=== PATIENT | female | born 1960 | race Caucasian/White ===

== ENCOUNTER 2018-01-09 13:39 | Emergency (ER) | payer MEDICAID ==
[~2018-01-09] VITALS: Ht 154.9 cm; Wt 60.8 kg
[2018-01-09] MEDS ORDERED: CYCL10 PO (13:51)
[2018-01-09] MEDS ORDERED: VENL37.5ER PO (13:52)
[2018-01-09 15:03] LABS: BASOPHILS ABSOLUTE AUTO 0.03 K/mm3 (0.00-0.23); BASOPHILS PERCENT AUTO 0 % (0-2); EOSINOPHILS ABSOLUTE AUTO 0.01 K/mm3 (0.00-0.68); EOSINOPHILS PERCENT AUTO 0 % (0-6); Hematocrit 40.1 % (33.0-51.0); Hemoglobin 13.5 g/dL (11.5-16.0); IMMATURE GRAN ABSOLUTE AUTO 0.05 K/mm3 (0.00-0.10); IMMATURE GRAN PERCENT AUTO 0 % (0-1); LYMPHOCYTES ABSOLUTE AUTO 1.38 K/mm3 (0.84-5.20); LYMPHOCYTES PERCENT AUTO 12 % (21-46); MONOCYTES ABSOLUTE AUTO 0.66 K/mm3 (0.16-1.47); MONOCYTES PERCENT AUTO 6 % (4-13); Mean Corpuscular HGB 28.8 pg (26.0-34.0); Mean Corpuscular HGB Conc 33.7 g/dL (31.5-36.5); Mean Corpuscular Volume 86 fL (80-100); Mean Platelet Volume 9.2 fL (9.1-12.4); NEUTROPHILS ABSOLUTE AUTO 9.77 K/mm3 (1.96-9.15); NEUTROPHILS PERCENT AUTO 82 % (41-73); Platelet Count 354 K/mm3 (150-400); RDW Coefficient Variation 13.8 % (11.7-14.2); Red Blood Cell Count 4.69 M/mm3 (3.80-5.20)
[2018-01-09 15:21] LABS: Anion Gap 10 mmol/L (6-16); Blood Urea Nitrogen 13 mg/dL (8-24); Bun/Creatinine Ratio 19.8 (12.0-20.0); CO2, Blood 22 mmol/L (21-32); Calcium, Blood 8.7 mg/dL (8.5-10.1); Chloride, Blood 104 mmol/L (98-108); Creatinine, Blood 0.66 mg/dL (0.40-1.00); Glomerular Filtration Rate >60 (60-); Glucose, Blood 123 mg/dL (70-99); Potassium, Blood 3.7 mmol/L (3.5-5.5); Sodium, Blood 136 mmol/L (136-145)
[2018-01-09] MEDS ORDERED: Motion Sickness25 M1 PO (17:20)
[2018-01-09] MEDS ORDERED: Zofran Odt4 MG PO (17:20)
== END 2018-01-09 17:51 | disposition home or self-care (01) ==
LOC: ER 13:39
PROVIDERS: Emergency Medicine
DX: R42 Dizziness and giddiness (principal); Z88.0 Allergy status to penicillin; Z79.899 Other long term (current) drug therapy; I10 Essential (primary) hypertension; J45.909 Unspecified asthma, uncomplicated; F17.200 Nicotine dependence, unspecified, uncomplicated
CPT/HCPCS: 36415; 70496; 80048; 85025; 93005; 93010; 96361; 96374; 99285-25; J2550; J7030; Q9967

== ENCOUNTER 2019-04-30 14:09 | Emergency (ER) | payer OTHER ==
[~2019-04-30] VITALS: Ht 154.9 cm; Wt 63.5 kg
[~2019-04-30 14:09] MED LIST: CYCL10 PO; Motion Sickness25 M1 PO; VENL37.5ER PO; Zofran Odt4 MG PO
[2019-04-30] MEDS ORDERED: LOSA25 PO (14:39)
[2019-04-30] MEDS ORDERED: DULO30 PO (14:39)
[2019-04-30] MEDS ORDERED: Seroquel Xr50 MG PO (14:40)
== END 2019-04-30 18:54 | disposition home or self-care (01) ==
LOC: ER 14:09
DX: S09.90XA Unspecified injury of head, initial encounter (principal); S66.911A Strain of unspecified muscle, fascia and tendon at wrist and hand level, right hand, initial encounter; V89.2XXA Person injured in unspecified motor-vehicle accident, traffic, initial encounter; I10 Essential (primary) hypertension; F17.210 Nicotine dependence, cigarettes, uncomplicated
CPT/HCPCS: 70450; 73110; 99284-25

== ENCOUNTER 2023-02-11 12:19 | Emergency (ER) | payer OTHER ==
[~2023-02-11] VITALS: Ht 152.4 cm; Wt 68.0 kg
[~2023-02-11 12:19] MED LIST changes: +DULO30 PO; +LOSA25 PO; +Seroquel Xr50 MG PO
[2023-02-11 12:24] VITALS: BP 139/99
[2023-02-11 14:46] LABS: Influenza A, PCR NEGATIVE (NEGATIVE); Influenza B, PCR NEGATIVE (NEGATIVE); Resp Syncytial Virus, PCR NEGATIVE (NEGATIVE); SARS-Cov-2 (COVID-19) PCR, MMC NEGATIVE (NEGATIVE)
[2023-02-11] MEDS ORDERED: ONDA4ODT MM (14:50)
[2023-02-11] MEDS ORDERED: Robaxin750 MG PO (14:50)
== END 2023-02-11 15:19 | disposition home or self-care (01) ==
LOC: ER 12:19
PROVIDERS: Emergency Medicine
DX: K52.9 Noninfective gastroenteritis and colitis, unspecified (principal); B34.9 Viral infection, unspecified; I10 Essential (primary) hypertension; F17.200 Nicotine dependence, unspecified, uncomplicated; Z20.822 Contact with and (suspected) exposure to COVID-19
CPT/HCPCS: 0241U; 99284; A9270